=== PATIENT | female | born 1960 | race Caucasian/White ===

== ENCOUNTER 2017-11-04 15:39 | Emergency (ER) | payer MEDICAID, OTHER ==
[~2017-11-04] VITALS: Ht 170.2 cm; Wt 73.5 kg
[2017-11-04 16:02] VITALS: BP 151/72
[2017-11-04] MEDS ORDERED: LORazepam 0.5 MG TAB PO ONE (16:30)
== END 2017-11-04 17:20 | disposition home or self-care (01) ==
LOC: ER 15:44
DX: F41.0 Panic disorder [episodic paroxysmal anxiety] (principal); I10 Essential (primary) hypertension; F17.210 Nicotine dependence, cigarettes, uncomplicated; Z76.0 Encounter for issue of repeat prescription

== ENCOUNTER 2018-12-24 10:59 | Emergency (ER) | payer MEDICAID ==
[~2018-12-24] VITALS: Ht 170.2 cm; Wt 77.1 kg
[2018-12-24 11:30] LABS: Basophils # (auto) 0.1 uL; Basophils % (auto) 1.2 % (0.0-2.0); Eosinophils # (auto) 0.2 uL; Eosinophils % (auto) 2.7 % (0.0-7.0); Hematocrit 44.3 % (36.0-46.0); Hemoglobin 15.4 g/dL (12.2-16.2); Lymphocytes # (auto) 2.2 uL; Lymphocytes % (auto) 30.1 % (10.0-50.0); Mean Corpuscular Hemoglobin 32.6 pg (28.0-32.0); Mean Corpuscular Hgb Conc. 34.8 g/dL (32.0-36.0); Mean Corpuscular Volume 93.8 fL (80.0-100.0); Monocytes # (auto) 0.4 uL; Monocytes % (auto) 5.3 % (0.0-12.0); Neutrophils # (auto) 4.5 uL; Neutrophils % (auto) 60.7 % (37.0-80.0); Nucleated Red Blood Cells % 0.1 %; Platelet Count (auto) 291 10^3/uL (140-450); Red Blood Cells 4.72 10^6/uL (4.0-5.20); Red Cell Distribution Width 12.3 % (11.8-14.3); White Blood Cell 7.4 10^3/uL (4.4-10.8)
[2018-12-24 11:37] LABS: BUN/Creatinine Ratio 14.4; Calcium 9.4 mg/dL (8.5-10.1); Potassium 4.3 mmol/L (3.5-5.1)
[2018-12-24 11:40] LABS: Bilirubin, Total 0.5 mg/dL (0.2-1.0); Total Protein 7.9 g/dL (6.4-8.2)
[2018-12-24 14:51] VITALS: BP 119/61
[2018-12-24 15:55] LABS: Urine Bacteria FEW /hpf (None Seen); Urine Blood Negative /uL (Negative); Urine Mucus FEW (None Seen); Urine Specific Gravity 1.021 (1.001-1.035); Urine WBC 1 /hpf (0 - 5)
== END 2018-12-24 14:57 | disposition home or self-care (01) ==
LOC: ER 10:59
DX: R55 Syncope and collapse (principal); F41.9 Anxiety disorder, unspecified; I10 Essential (primary) hypertension; F17.210 Nicotine dependence, cigarettes, uncomplicated; Z98.51 Tubal ligation status
CPT/HCPCS: 36415; 70450; 80053; 81001; 84484; 85025; 93005

== ENCOUNTER 2020-06-19 13:54 | Inpatient (IN) | payer MEDICAID ==
[~2020-06-19] VITALS: Ht 170.2 cm; Wt 87.5 kg
[2020-06-19 17:05] LABS: Basophils # (auto) 0 10 ^3/uL (0-0.2); Basophils % (auto) 0.5 % (0.0-2.0); Eosinophils # (auto) 0.1 10 ^3/uL (0-0.8); Eosinophils % (auto) 1.9 % (0.0-7.0); Hematocrit 42.2 % (36.0-46.0); Hemoglobin 14.8 g/dL (12.2-16.2); Lymphocytes # (auto) 2.1 10 ^3/uL (0.4-5.4); Lymphocytes % (auto) 26.6 % (10.0-50.0); Mean Corpuscular Hemoglobin 32.2 pg (28.0-32.0); Mean Corpuscular Hgb Conc. 35.1 g/dL (32.0-36.0); Mean Corpuscular Volume 91.8 fL (80.0-100.0); Monocytes # (auto) 0.5 10 ^3/uL (0-1.3); Nucleated Red Blood Cells % 0.5 %; Platelet Count (auto) 248 10^3/uL (140-450); Red Cell Distribution Width 12.8 % (11.8-14.3); White Blood Cell 7.7 10^3/uL (4.4-10.8)
[2020-06-19 17:20] LABS: Albumin 3.8 g/dL (3.4-5.0); Calcium 9.1 mg/dL (8.5-10.1); Potassium 3.7 mmol/L (3.5-5.1)
[2020-06-19 17:22] LABS: INR 0.92 (0.9-1.15); Partial Thromboplastin Time 25.4 sec (23.0-31.2)
[2020-06-19 17:24] LABS: BUN/Creatinine Ratio 17.8; Bilirubin, Total 0.3 mg/dL (0.2-1.0); Total Protein 7.9 g/dL (6.4-8.2)
[2020-06-19] MEDS ORDERED: ACETAMINOPHEN 500 MG TAB PO PRN (18:30)
[2020-06-19] MEDS ORDERED: MORPHINE SULF INJ 2 MG/ML SYRINGE 1ML IV PRN (18:30)
[2020-06-19] MEDS ORDERED: LABETALOL HCL 5 MG/ML 4ML SYRINGE IV ONE (18:30)
[2020-06-19] MEDS ORDERED: NITROGLYCERIN 0.4 MG SL TAB SL PRN (18:30)
[2020-06-19] MEDS ORDERED: hydrALAZINE HCL 20 MG/ML VL IV PRN (18:30)
[2020-06-19] MEDS ORDERED: NIFEdipine ER 30 MG TAB PO ONE (18:30)
[2020-06-19] MEDS ORDERED: ASPirin-EC 81 mg tab PO ONE (18:30)
[2020-06-19] MEDS ORDERED: ONDANSETRON HCL 4 MG/2 ML VIAL IV PRN (18:30)
[2020-06-19 20:31] LABS: Cholesterol 320 mg/dL (< 200); HDL Cholesterol 52 mg/dL (40-59); LDL Cholesterol 225 mg/dL (< 100); Triglycerides 281 mg/dL (< 150)
[2020-06-19] MEDS: LORazepam 0.5 MG TAB PO PRN (22:19)
[2020-06-19] MEDS: traZODone HCL 50 MG TAB PO SCH (22:19)
[2020-06-20 05:00] VITALS: BP 111/55
[2020-06-20] MEDS ORDERED: TRAZ300T16 PO (05:56)
[2020-06-20] MEDS ORDERED: NITR-52 PO (05:56)
[2020-06-20] MEDS ORDERED: BETAPOW XX (05:56)
[2020-06-20] MEDS ORDERED: LORA0.5T20 PO (05:56)
[2020-06-20] MEDS ORDERED: SERT-377 PO (05:56)
[2020-06-20 08:00] VITALS: BP 125/69
[2020-06-20] MEDS: FAMOTIDINE 20 MG TAB PO SCH (09:08)
[2020-06-20] MEDS: NIFEdipine ER 30 MG TAB PO SCH (09:09)
[2020-06-20] MEDS: ASPirin-EC 81 mg tab PO SCH (09:09)
[2020-06-20] MEDS ORDERED: LORA1TAB23 PO (09:21)
[2020-06-20] MEDS: LORazepam 0.5 MG TAB PO PRN ×3 (09:26→22:22)
[2020-06-20] MEDS ORDERED: SERTRALINE HCL 50 MG TAB PO SCH (10:00)
[2020-06-20] MEDS: HYDROcodone-ACET 5/325MG TAB PO PRN ×2 (10:16→15:48)
[2020-06-20 12:00] VITALS: BP 125/59
[2020-06-20 16:00] VITALS: BP 126/57
[2020-06-20] MEDS: SERTRALINE HCL 50 MG TAB PO SCH ×2 (19:45→22:21)
[2020-06-20 22:00] VITALS: BP 136/78
[2020-06-20] MEDS: traZODone HCL 50 MG TAB PO SCH (22:21)
[2020-06-20] MEDS: ATORVASTATIN 20 MG TAB PO SCH (22:22)
[2020-06-21] MEDS: HYDROcodone-ACET 5/325MG TAB PO PRN ×2 (00:08→09:25)
[2020-06-21 05:00] VITALS: BP 128/69
[2020-06-21 06:28] LABS: Basophils # (auto) 0.1 10 ^3/uL (0-0.2); Eosinophils # (auto) 0.3 10 ^3/uL (0-0.8); Eosinophils % (auto) 2.9 % (0.0-7.0); Hematocrit 42.6 % (36.0-46.0); Hemoglobin 14.9 g/dL (12.2-16.2); Lymphocytes # (auto) 2.6 10 ^3/uL (0.4-5.4); Mean Corpuscular Hemoglobin 32.1 pg (28.0-32.0); Mean Corpuscular Volume 91.9 fL (80.0-100.0); Monocytes # (auto) 0.6 10 ^3/uL (0-1.3); Monocytes % (auto) 6.8 % (0.0-12.0); Neutrophils # (auto) 5.3 10 ^3/uL (1.6-8.6); Neutrophils % (auto) 60.3 % (37.0-80.0); Platelet Count (auto) 233 10^3/uL (140-450); Red Blood Cells 4.64 10^6/uL (4.0-5.20); Red Cell Distribution Width 13.2 % (11.8-14.3); White Blood Cell 8.8 10^3/uL (4.4-10.8)
[2020-06-21 06:51] LABS: Albumin 3.7 g/dL (3.4-5.0); BUN/Creatinine Ratio 19.5; Bilirubin, Total 0.4 mg/dL (0.2-1.0)
[2020-06-21 06:58] LABS: Total Protein 7.6 g/dL (6.4-8.2)
[2020-06-21 08:00] VITALS: BP 131/71
[2020-06-21] MEDS: ASPirin-EC 81 mg tab PO SCH (09:21)
[2020-06-21] MEDS: SERTRALINE HCL 50 MG TAB PO SCH (09:22)
[2020-06-21] MEDS: FAMOTIDINE 20 MG TAB PO SCH (09:22)
[2020-06-21] MEDS: NIFEdipine ER 30 MG TAB PO SCH (09:24)
[2020-06-21] MEDS: LORazepam 0.5 MG TAB PO PRN (11:51)
[2020-06-21 11:58] VITALS: BP 153/75
[2020-06-21 16:00] VITALS: BP 135/64
[2020-06-21] MEDS: SODIUM CHLORIDE 0.9% 1,000 ML IV SCH (19:27)
[2020-06-21 20:00] VITALS: BP 146/81
[2020-06-21 22:00] VITALS: BP 146/81
[2020-06-21] MEDS: ATORVASTATIN 20 MG TAB PO SCH (22:16)
[2020-06-21] MEDS: traZODone HCL 50 MG TAB PO SCH (22:16)
[2020-06-22] MEDS: LORazepam 0.5 MG TAB PO PRN ×3 (00:06→22:09)
[2020-06-22 04:43] VITALS: BP 117/78
[2020-06-22] MEDS: SODIUM CHLORIDE 0.9% 1,000 ML IV SCH ×2 (05:00→15:27)
[2020-06-22 09:00] VITALS: BP 139/67
[2020-06-22] MEDS: FAMOTIDINE 20 MG TAB PO SCH (10:01)
[2020-06-22] MEDS: ASPirin-EC 81 mg tab PO SCH (10:01)
[2020-06-22] MEDS: NIFEdipine ER 30 MG TAB PO SCH (10:02)
[2020-06-22] MEDS: SERTRALINE HCL 50 MG TAB PO SCH (10:02)
[2020-06-22] MEDS ORDERED: IOHEXOL 350 MG/ML 100ML IJ ONE (11:16)
[2020-06-22 13:00] VITALS: BP 128/74
[2020-06-22 17:00] VITALS: BP 141/78
[2020-06-22 19:15] LABS: Basophils # (auto) 0.1 10 ^3/uL (0-0.2); Eosinophils # (auto) 0.2 10 ^3/uL (0-0.8); Hemoglobin 14.6 g/dL (12.2-16.2); Lymphocytes # (auto) 2.5 10 ^3/uL (0.4-5.4); Lymphocytes % (auto) 28.5 % (10.0-50.0); Mean Corpuscular Hemoglobin 32.5 pg (28.0-32.0); Mean Corpuscular Hgb Conc. 35.6 g/dL (32.0-36.0); Mean Corpuscular Volume 91.3 fL (80.0-100.0); Monocytes # (auto) 0.6 10 ^3/uL (0-1.3); Monocytes % (auto) 6.9 % (0.0-12.0); Neutrophils # (auto) 5.4 10 ^3/uL (1.6-8.6); Neutrophils % (auto) 61.6 % (37.0-80.0); Nucleated Red Blood Cells % 0.1 %; Platelet Count (auto) 225 10^3/uL (140-450); Red Blood Cells 4.49 10^6/uL (4.0-5.20); Red Cell Distribution Width 13.1 % (11.8-14.3); White Blood Cell 8.8 10^3/uL (4.4-10.8)
[2020-06-22 19:33] LABS: INR 0.97 (0.9-1.15); Partial Thromboplastin Time 25.9 sec (23.0-31.2)
[2020-06-22] MEDS: HEPARIN DRIP/D5W 100UNITS/ML 250 ML IV SCH (21:03)
[2020-06-22 22:00] VITALS: BP 134/59
[2020-06-22] MEDS: ATORVASTATIN 20 MG TAB PO SCH (22:08)
[2020-06-22] MEDS: traZODone HCL 50 MG TAB PO SCH (22:08)
[2020-06-23 03:26] LABS: Basophils # (auto) 0 10 ^3/uL (0-0.2); Basophils % (auto) 0.5 % (0.0-2.0); Eosinophils # (auto) 0.3 10 ^3/uL (0-0.8); Eosinophils % (auto) 3.4 % (0.0-7.0); Hematocrit 40.8 % (36.0-46.0); Hemoglobin 14.1 g/dL (12.2-16.2); Lymphocytes # (auto) 2.7 10 ^3/uL (0.4-5.4); Lymphocytes % (auto) 33.6 % (10.0-50.0); Mean Corpuscular Hemoglobin 31.9 pg (28.0-32.0); Mean Corpuscular Hgb Conc. 34.6 g/dL (32.0-36.0); Mean Corpuscular Volume 92.2 fL (80.0-100.0); Monocytes # (auto) 0.5 10 ^3/uL (0-1.3); Monocytes % (auto) 5.7 % (0.0-12.0); Neutrophils # (auto) 4.6 10 ^3/uL (1.6-8.6); Neutrophils % (auto) 56.8 % (37.0-80.0); Platelet Count (auto) 248 10^3/uL (140-450); Red Blood Cells 4.42 10^6/uL (4.0-5.20); Red Cell Distribution Width 12.8 % (11.8-14.3); White Blood Cell 8.1 10^3/uL (4.4-10.8)
[2020-06-23 03:44] LABS: Albumin 3.5 g/dL (3.4-5.0); Calcium 8.7 mg/dL (8.5-10.1); Potassium 3.9 mmol/L (3.5-5.1)
[2020-06-23 03:47] LABS: BUN/Creatinine Ratio 20.7; Bilirubin, Total 0.4 mg/dL (0.2-1.0); Total Protein 7.5 g/dL (6.4-8.2)
[2020-06-23 03:51] LABS: INR 0.95 (0.9-1.15); Partial Thromboplastin Time 25.4 sec (23.0-31.2)
[2020-06-23 04:48] VITALS: BP 130/71
[2020-06-23 04:50] VITALS: BP 127/67
[2020-06-23] MEDS: SODIUM CHLORIDE 0.9% 1,000 ML IV SCH ×2 (07:05→11:00)
[2020-06-23] MEDS: ASPirin-EC 81 mg tab PO SCH (08:54)
[2020-06-23] MEDS: FAMOTIDINE 20 MG TAB PO SCH (08:55)
[2020-06-23] MEDS: SERTRALINE HCL 50 MG TAB PO SCH (08:56)
[2020-06-23] MEDS: NIFEdipine ER 30 MG TAB PO SCH (08:56)
[2020-06-23 09:00] VITALS: BP 153/65
[2020-06-23] MEDS: LORazepam 0.5 MG TAB PO PRN ×2 (09:04→14:43)
[2020-06-23] MEDS ORDERED: CLOPIDOGREL BISULFATE 75 MG TAB PO SCH (10:00)
[2020-06-23 10:50] LABS: INR 0.96 (0.9-1.15); Partial Thromboplastin Time 25.4 sec (23.0-31.2)
[2020-06-23] MEDS: HEPARIN DRIP/D5W 100UNITS/ML 250 ML IV SCH (10:53)
[2020-06-23] MEDS ORDERED: DOCUSATE SOD 100 MG CAP PO PRN (11:30)
[2020-06-23 13:00] VITALS: BP 153/73
[2020-06-23 13:49] VITALS: BP 150/73
== END 2020-06-23 14:35 | disposition short-term general hospital (02) | DRG 45 ==
LOC: ER 13:54 → TELE 18:27 → TELE-CENTR 06-20 03:21
PROVIDERS: ADMIT Nurse Practitioner Acute Care; ATTEND Internal Medicine
DX: I63.232 Cerebral infarction due to unspecified occlusion or stenosis of left carotid arteries (principal); I16.1 Hypertensive emergency; R47.01 Aphasia; E66.9 Obesity, unspecified; F41.9 Anxiety disorder, unspecified; F32.9 Major depressive disorder, single episode, unspecified; Z20.822 Contact with and (suspected) exposure to COVID-19; E78.5 Hyperlipidemia, unspecified; G47.9 Sleep disorder, unspecified; R56.9 Unspecified convulsions; G81.94 Hemiplegia, unspecified affecting left nondominant side; Z79.82 Long term (current) use of aspirin; Z91.14 Patient's other noncompliance with medication regimen; Z79.899 Other long term (current) drug therapy; Z68.29 Body mass index [BMI] 29.0-29.9, adult; Z87.891 Personal history of nicotine dependence; Z80.0 Family history of malignant neoplasm of digestive organs; Z81.8 Family history of other mental and behavioral disorders; Z86.73 Personal history of transient ischemic attack (TIA), and cerebral infarction without residual deficits; Z91.19 Patient's noncompliance with other medical treatment and regimen; Z98.51 Tubal ligation status
CPT/HCPCS: 36415; 70450; 70496; 70498; 70551; 71045; 80053; 80061; 80320; 84484; 85025; 85610; 85730; 87426; 93005; 93306; 93886; 95819; G0378; J3490